=== PATIENT | male | born 1990 | race Caucasian/White ===

== ENCOUNTER 2019-05-14 18:26 | Emergency (ER) | payer BC ==
[2019-05-14] MEDS ORDERED: Amoxicillin 500 MG Cap PO ONE (19:07)
[2019-05-14] MEDS ORDERED: HYDROmorphone 0.5 MG/0.5 ML Syringe IM ONE (19:07)
--- NOTE | 2019-05-14 19:13 | EDM.PDOC ---
ED HPI GENERAL MEDICAL PROBLEM - General Chief Complaint: ENT Problem Stated Complaint: FLUID IN LEFT EAR/SORE THROAT Time Seen by Provider: 05/14/19 18:41 Source of Information: Reports: Patient, RN Notes Reviewed History Limitations: Reports: No Limitations - History of Present Illness INITIAL COMMENTS - FREE TEXT/NARRATIVE: Patient is a 28-year-old male who presents to the ED for evaluation of pain in his left ear, and a sore throat. Patient's not had any fever at home, and he does remain afebrile at time of triage at 97.8 F. Patient states that the pain in his left ear did start roughly 1 hour prior to arrival to the ED. He states it feels as if someone is stabbing him in the ear with ice pick. Patient did not take any sort of pain medication at home for this. Patient states that he used to get lots of ear infections when he was a younger child. Patient denies any upper airway surgeries. He denies any cough/shortness of breath/body aches or fatigue. Left Ear Pain Score (Numeric/FACES): 8 - Related Data Allergies Allergy/AdvReac Type Severity Reaction Status Date / Time No Known Allergies Allergy Verified 05/14/19 18:32 Home Meds: Home Meds Amoxicillin 500 mg PO BID #20 tab 05/14/19 [Rx] Past Medical History Dermatologic History: Reports: Other (See Below) Other Dermatologic History: cyst removal from tailbone - Infectious Disease History Infectious Disease History: Reports: Chicken Pox Social & Family History - Family History Family Medical History: Noncontributory - Tobacco Use Smoking Status *Q: Current Every Day Smoker Years of Tobacco use: 11 Packs/Tins Daily: 0.5 ED ROS ENT - Review of Systems Review Of Systems: Comprehensive ROS is negative, except as noted in HPI. ED EXAM, ENT - Physical Exam Exam: See Below Exam Limited By: No Limitations General Appearance: Alert, WD/WN, No Apparent Distress Eye Exam: Bilateral Eye: EOMI, Normal Inspection, PERRL Ears: Normal External Exam, Normal Canal, Hearing Grossly Normal, TM Dullness, TM Fluid (purulent fluid noted behind left TM, air fluid level present), Other ( Normal TM on right). No: TM Bulging Nose: Normal Inspection, Normal Mucousa, No Blood Mouth/Throat: Normal Inspection, Normal Gums, Normal Lips, Normal Teeth, Pharyngeal Erythema. No: Tonsillar Exudates, Tonsillar Swelling, Trismus Head: Atraumatic, Normocephalic Neck: Normal Inspection, Supple, Non-Tender, Full Range of Motion Respiratory/Chest: No Respiratory Distress, Lungs Clear, Normal Breath Sounds, No Accessory Muscle Use, Chest Non-Tender Cardiovascular: Normal Peripheral Pulses, Regular Rate, Rhythm, No Murmur Extremities: Normal Inspection, Normal Capillary Refill Neurological: Alert, Oriented, Normal Cognition, No Motor/Sensory Deficits Psychiatric: Normal Affect, Normal Mood Skin: Warm, Dry, Intact, Normal Color, No Rash Course - Vital Signs Last Recorded V/S: Last Vital Signs Temp 97.8 F 05/14/19 18:33 Pulse 105 H 05/14/19 18:33 Resp 16 05/14/19 18:33 BP 136/87 05/14/19 18:33 Pulse Ox 96 05/14/19 18:33 - Orders/Labs/Meds Orders: Active Orders 24 hr Category Date Time Status CULTURE STREP A CONFIRMATION [] Stat Lab 05/14/19 18:43 Results STREP SCRN A RAPID W CULT CONF [] Stat Lab 05/14/19 18:41 Ordered Amoxicillin [Amoxil] Med 05/14/19 19:07 Once 500 mg PO ONETIME ONE HYDROmorphone [Dilaudid] Med 05/14/19 19:07 Once 0.5 mg IM ONETIME ONE Medication Orders Amoxicillin (Amoxil) 500 mg PO ONETIME ONE Stop: 05/14/19 19:08 Hydromorphone HCl (Dilaudid) 0.5 mg IM ONETIME ONE Stop: 05/14/19 19:08 Meds: Medications Generic Name Dose Route Start Last Admin Trade Name Freq PRN Reason Stop Dose Admin Amoxicillin 500 mg 05/14/19 19:07 Amoxil PO 05/14/19 19:08 ONETIME ONE Hydromorphone HCl 0.5 mg 05/14/19 19:07 Dilaudid IM 05/14/19 19:08 ONETIME ONE - Re-Assessments/Exams Free Text/Narrative Re-Assessment/Exam: 05/14/19 19:14 Patient present to the ED for his left ear pain and sore throat. It does appear that the is suffering from a Left sided otitis media with the purulent fluid and an air fluid level present. Strep screen was performed at time of triage, and this was negative at today's visit, will be sent for culture for confirmation. Patient's throat is erythematous, although no exudates are noted on exam. Patient states that he was having quite a bit of pain in his left ear, I have ordered 0.5mg IM Dilaudid for pain management. Departure - Departure Time of Disposition: 19:16 Disposition: Home, Self-Care 01 Condition: Fair Clinical Impression: Acute sore throat Otitis media Qualifiers: Otitis media type: suppurative Chronicity: acute Laterality: left Recurrence: non-recurrent Spontaneous tympanic membrane rupture: without spontaneous rupture Qualified Code(s): H66.002 - Acute suppurative otitis media without spontaneous rupture of ear drum, left ear - Discharge Information *PRESCRIPTION DRUG MONITORING PROGRAM REVIEWED*: No *COPY OF PRESCRIPTION DRUG MONITORING REPORT IN PATIENT RENATO: No Prescriptions: Amoxicillin 500 mg PO BID #20 tab Instructions: Otitis Media, Adult, [id number] Referrals: PCP,Not In Area [Primary Care Provider] - Additional Instructions: You were evaluated in the ER today regarding your left ear pain and sore throat. It does appear that you have a left-sided otitis media at this time, you have been started on amoxicillin, 500 mg twice daily for the next 10 days. Your initial strep screen was negative, however this will be sent for culture for confirmation as this is not a perfect test. You will be called and made notified of a positive result, but be assured that amoxicillin is the mainstay of treatment for strep throat, so you are already covered if it does return positive. Please use 500 mg Tylenol or 600 mg ibuprofen every 6 hours as needed for further pain relief. Do not exceed 4000 mg Tylenol or 3200 mg ibuprofen in a 24 -hour time span. If your ear pain is not much better in roughly 3 to 4 days time, recommend you seek care for re-evaluation. Please note the antibiotics can take 48 hours to start providing you benefit. The prescription was sent to the [place] [facility]. You will need to go to [facility] tomorrow morning to obtain this prescription and start taking as directed. Please return to the ER at any time if symptoms change or worsen. Sepsis Event Note - Evaluation Sepsis Screening Result: No Definite Risk - Focused Exam Vital Signs: Vital Signs Temp Pulse Resp BP Pulse Ox 05/14/19 18:33 97.8 F 105 H 16 136/87 96 Date Exam was Performed: 05/14/19 Time Exam was Performed: 19:08 - My Orders Last 24 Hours: My Active Orders 05/14/19 18:41 STREP SCRN A RAPID W CULT CONF [RM] Stat 05/14/19 18:43 CULTURE STREP A CONFIRMATION [RM] Stat 05/14/19 19:07 Amoxicillin [Amoxil] 500 mg PO ONETIME ONE HYDROmorphone [Dilaudid] 0.5 mg IM ONETIME ONE - Assessment/Plan Last 24 Hours: My Active Orders 05/14/19 18:41 STREP SCRN A RAPID W CULT CONF [RM] Stat 05/14/19 18:43 CULTURE STREP A CONFIRMATION [RM] Stat 05/14/19 19:07 Amoxicillin [Amoxil] 500 mg PO ONETIME ONE HYDROmorphone [Dilaudid] 0.5 mg IM ONETIME ONE
== END 2019-05-14 19:30 | disposition home or self-care (01) ==
LOC: JD.ED 18:26
DX: H66.002 Acute suppurative otitis media without spontaneous rupture of ear drum, left ear (principal); J02.9 Acute pharyngitis, unspecified; F17.210 Nicotine dependence, cigarettes, uncomplicated
CPT/HCPCS: 87081; 87430; 96372; 99283; A9270; J1170; 99284

== ENCOUNTER 2019-05-14 21:52 | Emergency (ER) | payer BC ==
--- NOTE | 2019-05-14 22:13 | EDM.PDOC ---
ED HPI GENERAL MEDICAL PROBLEM - General Chief Complaint: ENT Problem Stated Complaint: pain in both ears getting worse Time Seen by Provider: 05/14/19 22:00 Bilateral Ear Pain Score (Numeric/FACES): 8 - Related Data Allergies Allergy/AdvReac Type Severity Reaction Status Date / Time No Known Allergies Allergy Verified 05/14/19 21:59 Home Meds: Home Meds Amoxicillin 500 mg PO BID #20 tab 05/14/19 [Rx] Past Medical History - Past Health History Medical/Surgical History: Denies Medical/Surgical History HEENT History: Reports: Otitis Media Dermatologic History: Reports: Other (See Below) Other Dermatologic History: cyst removal from tailbone - Infectious Disease History Infectious Disease History: Reports: Chicken Pox Social & Family History - Family History Family Medical History: Noncontributory - Tobacco Use Smoking Status *Q: Current Every Day Smoker Years of Tobacco use: 11 Packs/Tins Daily: 0.5 - Alcohol Use Days Per Week of Alcohol Use: 3 Number of Drinks Per Day: 1 Total Drinks Per Week: 3 - Recreational Drug Use Recreational Drug Use: No ED ROS ENT - Review of Systems Review Of Systems: See Below Constitutional: Reports: No Symptoms HEENT: Reports: Ear Pain Respiratory: Reports: No Symptoms Cardiovascular: Reports: No Symptoms Endocrine: Reports: No Symptoms GI/Abdominal: Reports: No Symptoms ED EXAM, ENT - Physical Exam Exam: See Below Exam Limited By: No Limitations General Appearance: Alert, No Apparent Distress Ears: Normal External Exam, TM Bulging, TM Erythema, TM Fluid. No: Canal Blood , Canal Material, TM Perforation, TM Vesicles, TM Obscured by Cerumen Nose: Normal Inspection Course - Vital Signs Last Recorded V/S: Last Vital Signs Temp 36.9 C 05/14/19 21:59 Pulse 99 05/14/19 21:59 Resp 19 05/14/19 21:59 BP 151/98 H 05/14/19 21:59 Pulse Ox 93 L 05/14/19 21:59 - Re-Assessments/Exams Free Text/Narrative Re-Assessment/Exam: 05/14/19 22:11 Worked with the patient to try and clear his ears this helped with the right ear a little bit but no relief in the left ear. Departure - Departure Time of Disposition: 22:14 Disposition: Home, Self-Care 01 Clinical Impression: Otitis media Qualifiers: Otitis media type: suppurative Chronicity: acute Laterality: left Recurrence: non-recurrent Spontaneous tympanic membrane rupture: without spontaneous rupture Qualified Code(s): H66.002 - Acute suppurative otitis media without spontaneous rupture of ear drum, left ear - Discharge Information Referrals: PCP,None [Primary Care Provider] - Additional Instructions: You were given 10 pain pills from the machine out in the waiting room take 1 or 2 every 6 hours as needed. You must give yourself 12 hours after using this medication before driving or returning to work. 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 Return to the emergency room with any questions problems or worsening symptoms Sepsis Event Note - Evaluation Sepsis Screening Result: No Definite Risk - Focused Exam Vital Signs: Vital Signs Temp Pulse Resp BP Pulse Ox 05/14/19 21:59 36.9 C 99 19 151/98 H 93 L Date Exam was Performed: 05/14/19 Time Exam was Performed: 22:07
== END 2019-05-14 22:20 | disposition home or self-care (01) ==
LOC: JD.ED 21:52
DX: H66.002 Acute suppurative otitis media without spontaneous rupture of ear drum, left ear (principal); F17.210 Nicotine dependence, cigarettes, uncomplicated
CPT/HCPCS: 99282